=== PATIENT | female | born 1970 ===

== ENCOUNTER 2025-02-22 07:30 | Inpatient (IN) | payer OTHER ==
[~2025-02-22] VITALS: Ht 167.6 cm; Wt 68.0 kg
[2025-02-22 08:34] VITALS: BP 117/75
[2025-02-22 08:41] LABS: BASO % 0.5 % (0.1-1.2); EOS # 0.05 (0.04-0.54); EOS % 0.6 % (0.7-7.0); LYMPH # 2.57 (1.18-3.74); LYMPH % 33.2 % (19.3-53.1); MEAN PLATELET VOLUME 11.40 fl (9.4-12.4); MONO # 0.44 (0.24-0.82); MONO % 5.7 % (4.7-12.5); NEUT # 4.61 (1.56-6.13); NEUT % 59.7 % (34.0-71.1); RED CELL DISTRIBUTION WIDTH 12.2 % (11.6-14.4)
[2025-02-22 08:42] LABS: URINE APPEARANCE Clear; URINE BILIRRUBIN Negative (NEGATIVE); URINE BLOOD Small; URINE COLOR Yellow; URINE GLUCOSE Negative (NEGATIVE); URINE KETONE Negative (NEGATIVE); URINE LEUKOCYTE Trace; URINE NITRATE Negative; URINE PROTEIN Negative (NEGATIVE); URINE UROBILINOGEN 1.0 E.U./dl
[2025-02-22 08:43] LABS: URINE BACTERIA 16.7 uL (0.0-1933); URINE EPITHELIAL CELLS 9.8 uL (0.0-38.8); URINE RBC 24.7 uL (0.0-20.8); URINE WBC 6.1 uL (0.0-23.2)
[2025-02-22 08:47] LABS: URINE CAST 0.00 uL (0.0-1.40)
[2025-02-22 09:15] LABS: INR 1.02
[2025-02-22 09:50] LABS: ALT/SGPT 29.0 U/L (12-78); AST/SGOT 18.0 U/L (15-37); BILIRUBIN TOTAL 0.59 mg/dL (0.3-1.2); BUN CREA RATIO 24.0 (7.0-25.0); CREATININE SERUM 0.66 mg/dL (0.55-1.02); GFR 92.64; GLOBULINA 2.8 G/DL (2.4-3.5); GLUCOSE FASTING 96.0 mg/dL (65-100); OSMOLALITY SERUM 292.0 MOSM/KG (275-295)
[2025-02-25] MEDS ORDERED: DEXAMETHASONE SODIUM PHOSPHATE 4 MG/ML VIAL ONE (11:01)
[2025-02-25] MEDS ORDERED: DEXAMETHASONE SODIUM PHOSPHATE 4 MG/ML VIAL IV ONE (13:30)
[2025-02-25] MEDS ORDERED: MORPHINE SULFATE 4 MG/ML CARTRIDGE IV PRN (14:15)
[2025-02-25] MEDS ORDERED: ONDANSETRON HCL 2 MG/ML VIAL IV PRN (14:15)
[2025-02-25] MEDS ORDERED: ENALAPRILAT DIHYDRATE 1.25 MG/ML VIAL IV PRN (14:15)
[2025-02-25] MEDS ORDERED: CYCLOBENZAPRINE HCL 5 MG TABLET PO SCH (17:00)
[2025-02-25] MEDS ORDERED: TRAMADOL HCL 50 MG TABLET PO SCH (17:00)
[2025-02-25] MEDS ORDERED: DIPHENHYDRAMINE HCL 75 MG,LIDOCAINE HCL 30 ML,MAG HYDROX/ALUMINUM HYD/SIMETH 30 ML PO SCH (17:00)
[2025-02-26 01:29] VITALS: BP 107/67; O2SAT 100
[2025-02-26 08:51] VITALS: BP 87/56; O2SAT 95
[2025-02-26 16:13] VITALS: BP 86/49; O2SAT 96
== END 2025-02-26 19:03 | disposition home or self-care (01) | DRG 627 ==
LOC: SURH 02-25 07:30 → O/R 02-25 09:00 → SURH 02-25 09:45 → O/R 02-25 13:39 → SURH 02-25 20:07
PROVIDERS: ADMIT Surgery; ATTEND Surgery
PROC: 0GTG0ZZ Resection of Left Thyroid Gland Lobe, Open Approach (ICD-10-PCS; principal; 2025-02-25 09:45)
DX: E04.2 Nontoxic multinodular goiter (principal)